=== PATIENT | female | born 1945 | race Caucasian/White ===

== ENCOUNTER → 2017-02-10 | Outpatient (CLI) | payer MEDICARE ==
[~2017-02-10] MED LIST: CHOL400C PO; FISH OIL OMEGA1 EACH PO; LOSA25TA5 PO
== END | disposition home or self-care (01) ==
LOC: CFH 12:21
PROVIDERS: ATTEND Family Medicine
DX: Z13.820 Encounter for screening for osteoporosis (principal); N95.9 Unspecified menopausal and perimenopausal disorder
CPT/HCPCS: 77080